=== PATIENT | female | born 1950 | race Caucasian/White ===

== ENCOUNTER 2017-10-18 11:43 | Inpatient (IN) | payer OTHER ==
[~2017-10-18] VITALS: Ht 160 cm; Wt 68.0 kg
[~2017-10-18 11:43] MED LIST: AMLO10TA2; AMLO10TA2 PO; AMLODIPINE; ASPI-496 PO; ASPI-614; BIFI4CAP PO; CHOL2000 PO; DOCU-131; DOCU100T3 PO; DULO20CA45 PO; HYDR25TA6 PO; HYDROCHLORTHIAZIDE; LOSA100T2; LOSA100T6 PO; LOSARTAN; LOVASTATIN; METO25TA91; METO25TA91 PO; OMEP40CA6 PO; POTA10TA31 PO; SIMV10TA3 PO
[2017-10-18 14:22] LABS: MEAN CORPUSCULAR HEMOGLOBIN 29.9 pg (27.0-34.8); MEAN CORPUSCULAR HGB CONC 34.6 g/dL (32.4-35.8); MEAN CORPUSCULAR VOLUME 86.4 fL (80-100); MEAN PLATELET VOLUME 7.2 fL (7.4-10.4); PLATELET COUNT 393 x10^3/uL (130-400); RED BLOOD COUNT 5.04 x10^6/uL (3.82-5.3)
[2017-10-18 14:34] LABS: ALBUMIN 4.1 g/dL (3.4-5.0); ANION GAP 14 mmol/L (5-15); CHLORIDE 75 mmol/L (98-107); CREATININE 0.79 mg/dL (0.55-1.02)
[2017-10-18 14:38] LABS: TROPONIN I 0.022 ng/mL (0.000-0.045)
[2017-10-18 14:58] LABS: BASOPHILS # (AUTO) 0.03 x10^3/uL (0-0.1); BASOPHILS % (AUTO) 0 % (0-1); EOSINOPHILS # (AUTO) 0.04 x10^3/uL (0-0.4); EOSINOPHILS % (AUTO) 0 % (1-7); LYMPHOCYTES # (AUTO) 1.74 x10^3/uL (1-3.4); LYMPHOCYTES % (AUTO) 10 % (22-44); MD SCAN; MONOCYTES # (AUTO) 0.85 x10^3/uL (0.2-0.8); MONOCYTES % (AUTO) 5 % (2-9); NEUTROPHILS % (AUTO) 85 % (42-75)
[2017-10-18] MEDS ORDERED: DULO60CA7 PO (15:51)
[2017-10-18] MEDS ORDERED: ATOR40TA78 PO (15:51)
[2017-10-18] MEDS ORDERED: METF500T5 PO (15:51)
[2017-10-18] MEDS ORDERED: SODIUM CHLORIDE 0.9% 1,000 ML IV SCH (16:00)
[2017-10-18] MEDS ORDERED: BISACODYL 10 MG SUPP PR PRN (17:00)
[2017-10-18] MEDS ORDERED: DOCUSATE 100 MG CAPSULE PO PRN (17:00)
[2017-10-18] MEDS ORDERED: ONDANSETRON 2MG/ML, 2ML IVPush PRN (17:00)
[2017-10-18] MEDS ORDERED: POLYETHYLENE GLYCOL 17 GM PACKET PO PRN (17:00)
[2017-10-18] MEDS ORDERED: ENOXAPARIN 40 MG/0.4 ML SQ SCH (17:00)
[2017-10-18 17:28] LABS: MICROSCOPIC NOT IND
[2017-10-18] MEDS ORDERED: POTASSIUM CHLORIDE 10% 40 MEQ/30 ML UDC PO ONE ×2 (17:30→18:30)
[2017-10-18 17:37] LABS: CULTURE INDICATED? NO
[2017-10-18] MEDS ORDERED: ENOXAPARIN 40 MG/0.4 ML ONE (17:48)
[2017-10-18] MEDS ORDERED: POTASSIUM CHLORIDE 20 MEQ TAB.ER.PRT ONE (17:48)
[2017-10-18] MEDS ORDERED: POTASSIUM CHLORIDE 20 MEQ PACKET ONE (17:56)
[2017-10-18 17:57] LABS: OSMOLALITY,URINE 657 mOsm/kg (500-850)
[2017-10-18 18:12] LABS: ANION GAP 14 mmol/L (5-15); CALCIUM 8.2 mg/dL (8.5-10.1); CHLORIDE 77 mmol/L (98-107); CREATININE 0.68 mg/dL (0.55-1.02)
[2017-10-18] MEDS: SODIUM CHLORIDE 0.9% 1,000 ML IV SCH (19:00)
[2017-10-18 19:19] LABS: THYROID STIMULATING HORMONE 1.79 mIU/L (0.358-3.740)
[2017-10-18] MEDS: FAMOTIDINE 20 MG/2 ML IVPush SCH (20:17)
[2017-10-18] MEDS: ATORVASTATIN 40 MG TABLET PO SCH (20:17)
[2017-10-18 20:33] VITALS: BP 135/67
[2017-10-18] MEDS ORDERED: LORazepam 2 MG/ML, 1ML IVPush ONE (21:30)
[2017-10-18 22:49] LABS: ANION GAP 11 mmol/L (5-15); CHLORIDE 82 mmol/L (98-107)
[2017-10-18] MEDS: hydrALAzine 20 MG/ML, 1ML IVPush PRN (23:08)
[2017-10-19 02:48] LABS: BASOPHILS # (AUTO) 0.01 x10^3/uL (0-0.1); BASOPHILS % (AUTO) 0 % (0-1); EOSINOPHILS # (AUTO) 0.02 x10^3/uL (0-0.4); EOSINOPHILS % (AUTO) 0 % (1-7); LYMPHOCYTES # (AUTO) 1.03 x10^3/uL (1-3.4); LYMPHOCYTES % (AUTO) 6 % (22-44); MD NO; MEAN CORPUSCULAR VOLUME 85.7 fL (80-100); MEAN PLATELET VOLUME 7.4 fL (7.4-10.4); MONOCYTES # (AUTO) 1.08 x10^3/uL (0.2-0.8); MONOCYTES % (AUTO) 7 % (2-9); NEUTROPHILS # (AUTO) 13.93 x10^3/uL (1.8-6.8); NEUTROPHILS % (AUTO) 87 % (42-75); PLATELET COUNT 341 x10^3/uL (130-400); RED BLOOD COUNT 4.43 x10^6/uL (3.82-5.3); RED CELL DISTRIBUTION WIDTH 13.6 % (9.6-15.2)
[2017-10-19 02:58] LABS: ANION GAP 11 mmol/L (5-15); CALCIUM 7.8 mg/dL (8.5-10.1); CHLORIDE 83 mmol/L (98-107); CREATININE 0.58 mg/dL (0.55-1.02)
[2017-10-19] MEDS ORDERED: POTASSIUM CHLORIDE 10% 40 MEQ/30 ML UDC PO ONE ×3 (04:00→15:00)
[2017-10-19] MEDS: SODIUM CHLORIDE 0.9% 1,000 ML IV SCH ×2 (04:02→17:13)
[2017-10-19 04:40] VITALS: BP 119/71
[2017-10-19 06:39] LABS: ALANINE AMINOTRANSFERASE 30 U/L (12-78); ANION GAP 12 mmol/L (5-15); CALCIUM 7.6 mg/dL (8.5-10.1); CHLORIDE 85 mmol/L (98-107); CREATININE 0.73 mg/dL (0.55-1.02)
[2017-10-19 06:41] LABS: ALKALINE PHOSPHATASE 96 U/L (45-117); BILIRUBIN,TOTAL 0.8 mg/dL (0.2-1.0)
[2017-10-19] MEDS ORDERED: MAGNESIUM SULFATE PMX 4GM/100M 100 ML IV ONE (07:30)
[2017-10-19] MEDS ORDERED: POTASSIUM PHOSPHATE 44 MEQ in SODIUM CHLORIDE 0.9% 500 ML IV ONE (07:30)
[2017-10-19] MEDS: ENOXAPARIN 40 MG/0.4 ML SQ SCH (08:43)
[2017-10-19] MEDS: METOPROLOL SUCCINATE 25 MG TAB.ER.24H PO SCH (08:49)
[2017-10-19] MEDS: AMLODIPINE 5 MG TABLET PO SCH (08:50)
[2017-10-19] MEDS: ASPIRIN 81 MG TABLET EC PO SCH (08:52)
[2017-10-19] MEDS: LOSARTAN 50MG TABLET PO SCH (08:53)
[2017-10-19] MEDS: FAMOTIDINE 20 MG/2 ML IVPush SCH ×2 (08:55→20:43)
[2017-10-19] MEDS ORDERED: CHOLECALCIFEROL 1,000 UNIT TABLET PO SCH (09:00)
[2017-10-19] MEDS: INSULIN LISPRO 100 UNITS/ML, PEN SQ-INSULIN SCH ×3 (12:12→20:57)
[2017-10-19 12:24] LABS: ANION GAP 8 mmol/L (5-15); CALCIUM 7.9 mg/dL (8.5-10.1); CHLORIDE 85 mmol/L (98-107); CREATININE 0.57 mg/dL (0.55-1.02)
[2017-10-19] MEDS: ERGOCALCIFEROL 50,000 UNIT CAPSULE PO SCH (16:06)
[2017-10-19 19:03] LABS: ANION GAP 8 mmol/L (5-15); CHLORIDE 89 mmol/L (98-107)
[2017-10-19] MEDS: ATORVASTATIN 40 MG TABLET PO SCH (20:43)
[2017-10-20 00:39] LABS: ANION GAP 7 mmol/L (5-15); CHLORIDE 91 mmol/L (98-107); CREATININE 0.54 mg/dL (0.55-1.02)
[2017-10-20] MEDS: SODIUM CHLORIDE 0.9% 1,000 ML IV SCH ×3 (03:00→16:09)
[2017-10-20 04:00] VITALS: BP 150/56
[2017-10-20 05:49] LABS: BASOPHILS # (AUTO) 0.03 x10^3/uL (0-0.1); BASOPHILS % (AUTO) 0 % (0-1); EOSINOPHILS # (AUTO) 0.03 x10^3/uL (0-0.4); EOSINOPHILS % (AUTO) 0 % (1-7); LYMPHOCYTES # (AUTO) 1.48 x10^3/uL (1-3.4); LYMPHOCYTES % (AUTO) 10 % (22-44); MD NO; MEAN CORPUSCULAR HEMOGLOBIN 29.8 pg (27.0-34.8); MEAN CORPUSCULAR VOLUME 87.7 fL (80-100); MEAN PLATELET VOLUME 7.3 fL (7.4-10.4); MONOCYTES # (AUTO) 0.92 x10^3/uL (0.2-0.8); MONOCYTES % (AUTO) 6 % (2-9); NEUTROPHILS # (AUTO) 12.61 x10^3/uL (1.8-6.8); NEUTROPHILS % (AUTO) 84 % (42-75); PLATELET COUNT 323 x10^3/uL (130-400); RED BLOOD COUNT 4.61 x10^6/uL (3.82-5.3); RED CELL DISTRIBUTION WIDTH 13.9 % (9.6-15.2)
[2017-10-20 06:00] LABS: ANION GAP 8 mmol/L (5-15); CALCIUM 7.8 mg/dL (8.5-10.1); CHLORIDE 91 mmol/L (98-107)
[2017-10-20 06:01] LABS: CREATININE 0.55 mg/dL (0.55-1.02)
[2017-10-20] MEDS: INSULIN LISPRO 100 UNITS/ML, PEN SQ-INSULIN SCH ×4 (07:00→21:48)
[2017-10-20] MEDS ORDERED: POTASSIUM PHOSPHATE 44 MEQ in SODIUM CHLORIDE 0.9% 500 ML IV ONE (07:00)
[2017-10-20] MEDS: ENOXAPARIN 40 MG/0.4 ML SQ SCH (08:52)
[2017-10-20] MEDS: AMLODIPINE 5 MG TABLET PO SCH (09:05)
[2017-10-20] MEDS: FAMOTIDINE 20 MG/2 ML IVPush SCH ×2 (09:05→21:46)
[2017-10-20] MEDS: ASPIRIN 81 MG TABLET EC PO SCH (09:05)
[2017-10-20] MEDS: LOSARTAN 50MG TABLET PO SCH (09:06)
[2017-10-20] MEDS: METOPROLOL SUCCINATE 25 MG TAB.ER.24H PO SCH (09:06)
[2017-10-20] MEDS: DULOXETINE 30 MG CAPSULE.DR PO SCH (10:15)
[2017-10-20 12:43] VITALS: BP 183/78
[2017-10-20] MEDS: hydrALAzine 20 MG/ML, 1ML IVPush PRN (12:47)
[2017-10-20 14:59] VITALS: BP 163/79
[2017-10-20 19:31] VITALS: BP 151/70
[2017-10-20] MEDS: ATORVASTATIN 40 MG TABLET PO SCH (21:47)
[2017-10-21 02:12] VITALS: BP 168/80
[2017-10-21] MEDS: SODIUM CHLORIDE 0.9% 1,000 ML IV SCH (02:20)
[2017-10-21] MEDS: ACETAMINOPHEN 325 MG TABLET PO PRN ×2 (03:57→09:34)
[2017-10-21] MEDS: INSULIN LISPRO 100 UNITS/ML, PEN SQ-INSULIN SCH ×4 (07:00→20:44)
[2017-10-21 07:42] VITALS: BP 189/77
[2017-10-21 07:59] LABS: ANION GAP 9 mmol/L (5-15); CALCIUM 8.1 mg/dL (8.5-10.1); CHLORIDE 101 mmol/L (98-107); CREATININE 0.55 mg/dL (0.55-1.02)
[2017-10-21] MEDS: AMLODIPINE 5 MG TABLET PO SCH (08:00)
[2017-10-21] MEDS: DULOXETINE 30 MG CAPSULE.DR PO SCH (08:00)
[2017-10-21] MEDS: ASPIRIN 81 MG TABLET EC PO SCH (08:00)
[2017-10-21] MEDS: FAMOTIDINE 20 MG/2 ML IVPush SCH (08:00)
[2017-10-21] MEDS: ENOXAPARIN 40 MG/0.4 ML SQ SCH (08:00)
[2017-10-21] MEDS: LOSARTAN 50MG TABLET PO SCH (08:01)
[2017-10-21] MEDS: METOPROLOL SUCCINATE 50 MG TAB.ER.24H PO SCH (08:01)
[2017-10-21 09:05] VITALS: BP 159/82
[2017-10-21 11:22] LABS: BASOPHILS # (AUTO) 0.05 x10^3/uL (0-0.1); BASOPHILS % (AUTO) 0 % (0-1); EOSINOPHILS # (AUTO) 0.03 x10^3/uL (0-0.4); EOSINOPHILS % (AUTO) 0 % (1-7); LYMPHOCYTES # (AUTO) 1.54 x10^3/uL (1-3.4); LYMPHOCYTES % (AUTO) 12 % (22-44); MD NO; MEAN CORPUSCULAR HEMOGLOBIN 29.3 pg (27.0-34.8); MEAN CORPUSCULAR HGB CONC 33.9 g/dL (32.4-35.8); MEAN CORPUSCULAR VOLUME 86.4 fL (80-100); MEAN PLATELET VOLUME 7.8 fL (7.4-10.4); MONOCYTES # (AUTO) 0.88 x10^3/uL (0.2-0.8); MONOCYTES % (AUTO) 7 % (2-9); NEUTROPHILS # (AUTO) 10.25 x10^3/uL (1.8-6.8); NEUTROPHILS % (AUTO) 80 % (42-75); PLATELET COUNT 302 x10^3/uL (130-400); RED BLOOD COUNT 4.52 x10^6/uL (3.82-5.3); RED CELL DISTRIBUTION WIDTH 14.1 % (9.6-15.2)
[2017-10-21] MEDS ORDERED: POTASSIUM CHLORIDE 20 MEQ TAB.ER.PRT PO ONE (11:30)
[2017-10-21 12:22] LABS: HEMOGLOBIN A1C 7.4 % (4.2-6.3)
[2017-10-21 14:24] VITALS: BP 146/67
[2017-10-21 20:04] VITALS: BP 163/67
[2017-10-21] MEDS: ATORVASTATIN 40 MG TABLET PO SCH (20:43)
[2017-10-21] MEDS: FAMOTIDINE 20 MG TABLET PO SCH (20:44)
[2017-10-22 02:22] VITALS: BP 148/71
[2017-10-22 05:37] LABS: CHLORIDE 98 mmol/L (98-107)
[2017-10-22 05:46] LABS: ALANINE AMINOTRANSFERASE 41 U/L (12-78); ALBUMIN 3.4 g/dL (3.4-5.0); ALKALINE PHOSPHATASE 93 U/L (45-117); ANION GAP 8 mmol/L (5-15); BILIRUBIN,TOTAL 0.8 mg/dL (0.2-1.0); CALCIUM 8.5 mg/dL (8.5-10.1); CREATININE 0.55 mg/dL (0.55-1.02); TOTAL PROTEIN 6.3 g/dL (6.4-8.2)
[2017-10-22 06:12] LABS: BASOPHILS # (AUTO) 0.06 x10^3/uL (0-0.1); BASOPHILS % (AUTO) 0 % (0-1); EOSINOPHILS # (AUTO) 0.07 x10^3/uL (0-0.4); EOSINOPHILS % (AUTO) 0 % (1-7); LYMPHOCYTES # (AUTO) 1.89 x10^3/uL (1-3.4); LYMPHOCYTES % (AUTO) 13 % (22-44); MD NO; MEAN CORPUSCULAR HEMOGLOBIN 29.5 pg (27.0-34.8); MEAN CORPUSCULAR HGB CONC 33.8 g/dL (32.4-35.8); MEAN CORPUSCULAR VOLUME 87.4 fL (80-100); MEAN PLATELET VOLUME 7.8 fL (7.4-10.4); MONOCYTES # (AUTO) 0.86 x10^3/uL (0.2-0.8); MONOCYTES % (AUTO) 6 % (2-9); NEUTROPHILS # (AUTO) 12.29 x10^3/uL (1.8-6.8); NEUTROPHILS % (AUTO) 81 % (42-75); PLATELET COUNT 311 x10^3/uL (130-400); RED BLOOD COUNT 4.32 x10^6/uL (3.82-5.3); RED CELL DISTRIBUTION WIDTH 14.1 % (9.6-15.2)
[2017-10-22] MEDS: INSULIN LISPRO 100 UNITS/ML, PEN SQ-INSULIN SCH ×4 (07:00→20:37)
[2017-10-22 08:01] VITALS: BP 167/77
[2017-10-22] MEDS: ENOXAPARIN 40 MG/0.4 ML SQ SCH (08:02)
[2017-10-22] MEDS: ASPIRIN 81 MG TABLET EC PO SCH (08:03)
[2017-10-22] MEDS: DULOXETINE 30 MG CAPSULE.DR PO SCH (08:03)
[2017-10-22] MEDS: FAMOTIDINE 20 MG TABLET PO SCH ×2 (08:03→20:37)
[2017-10-22] MEDS: METOPROLOL SUCCINATE 50 MG TAB.ER.24H PO SCH (08:03)
[2017-10-22] MEDS: AMLODIPINE 5 MG TABLET PO SCH (08:03)
[2017-10-22] MEDS: LOSARTAN 50MG TABLET PO SCH (08:04)
[2017-10-22] MEDS: SODIUM CHLORIDE 0.9% 1,000 ML IV SCH ×2 (10:34→20:37)
[2017-10-22] MEDS ORDERED: HALOPERIDOL 5 MG/ML ONE (15:49)
[2017-10-22] MEDS: HALOPERIDOL 5 MG/ML IM PRN (15:51)
[2017-10-22 16:32] VITALS: BP 151/75
[2017-10-22] MEDS: metFORMIN 500 MG TABLET PO SCH (16:34)
[2017-10-22 19:23] VITALS: BP_SYST 128; BP_SYST 156; BP_DIAS 63; BP_DIAS 77
[2017-10-22] MEDS: ATORVASTATIN 40 MG TABLET PO SCH (20:36)
[2017-10-23] MEDS: SODIUM CHLORIDE 0.9% 1,000 ML IV SCH ×2 (01:36→11:22)
[2017-10-23 02:10] VITALS: BP 168/84
[2017-10-23 05:20] LABS: BASOPHILS # (AUTO) 0.04 x10^3/uL (0-0.1); BASOPHILS % (AUTO) 0 % (0-1); EOSINOPHILS # (AUTO) 0.09 x10^3/uL (0-0.4); EOSINOPHILS % (AUTO) 1 % (1-7); LYMPHOCYTES # (AUTO) 1.69 x10^3/uL (1-3.4); LYMPHOCYTES % (AUTO) 15 % (22-44); MD NO; MEAN CORPUSCULAR HEMOGLOBIN 30.2 pg (27.0-34.8); MEAN CORPUSCULAR HGB CONC 34.2 g/dL (32.4-35.8); MEAN CORPUSCULAR VOLUME 88.2 fL (80-100); MEAN PLATELET VOLUME 7.3 fL (7.4-10.4); MONOCYTES # (AUTO) 0.69 x10^3/uL (0.2-0.8); MONOCYTES % (AUTO) 6 % (2-9); NEUTROPHILS # (AUTO) 8.52 x10^3/uL (1.8-6.8); NEUTROPHILS % (AUTO) 77 % (42-75); PLATELET COUNT 286 x10^3/uL (130-400); RED BLOOD COUNT 4.25 x10^6/uL (3.82-5.3); RED CELL DISTRIBUTION WIDTH 14.1 % (9.6-15.2)
[2017-10-23 05:21] LABS: ANION GAP 8 mmol/L (5-15); CHLORIDE 99 mmol/L (98-107)
[2017-10-23 05:22] LABS: CREATININE 0.76 mg/dL (0.55-1.02)
[2017-10-23 06:45] VITALS: BP 204/83
[2017-10-23] MEDS: INSULIN LISPRO 100 UNITS/ML, PEN SQ-INSULIN SCH ×4 (07:34→21:00)
[2017-10-23] MEDS ORDERED: METOPROLOL SUCCINATE 25 MG TAB.ER.24H ONE (08:00)
[2017-10-23] MEDS: AMLODIPINE 5 MG TABLET PO SCH (08:05)
[2017-10-23] MEDS: ENOXAPARIN 40 MG/0.4 ML SQ SCH (08:05)
[2017-10-23] MEDS: metFORMIN 500 MG TABLET PO SCH ×2 (08:05→16:25)
[2017-10-23] MEDS: DULOXETINE 30 MG CAPSULE.DR PO SCH (08:06)
[2017-10-23] MEDS: FAMOTIDINE 20 MG TABLET PO SCH ×2 (08:06→21:05)
[2017-10-23] MEDS: LOSARTAN 50MG TABLET PO SCH (08:06)
[2017-10-23] MEDS: ASPIRIN 81 MG TABLET EC PO SCH (08:06)
[2017-10-23] MEDS: METOPROLOL SUCCINATE 50 MG TAB.ER.24H PO SCH (09:16)
[2017-10-23] MEDS: DIVALPROEX 250 MG TABLET.DR PO SCH (11:22)
[2017-10-23 13:41] VITALS: BP 127/72
[2017-10-23 18:36] VITALS: BP 154/69
[2017-10-23] MEDS ORDERED: LORazepam 0.5MG TABLET PO ONE (21:00)
[2017-10-23] MEDS: ATORVASTATIN 40 MG TABLET PO SCH (21:05)
[2017-10-24 00:51] VITALS: BP 145/67
[2017-10-24 05:16] LABS: BASOPHILS # (AUTO) 0.07 x10^3/uL (0-0.1); BASOPHILS % (AUTO) 1 % (0-1); EOSINOPHILS # (AUTO) 0.08 x10^3/uL (0-0.4); EOSINOPHILS % (AUTO) 1 % (1-7); LYMPHOCYTES # (AUTO) 2.11 x10^3/uL (1-3.4); LYMPHOCYTES % (AUTO) 18 % (22-44); MD NO; MEAN CORPUSCULAR HEMOGLOBIN 29.8 pg (27.0-34.8); MEAN CORPUSCULAR HGB CONC 33.9 g/dL (32.4-35.8); MEAN CORPUSCULAR VOLUME 87.8 fL (80-100); MEAN PLATELET VOLUME 7.2 fL (7.4-10.4); MONOCYTES # (AUTO) 0.75 x10^3/uL (0.2-0.8); MONOCYTES % (AUTO) 6 % (2-9); NEUTROPHILS % (AUTO) 75 % (42-75); PLATELET COUNT 303 x10^3/uL (130-400); RED BLOOD COUNT 4.58 x10^6/uL (3.82-5.3)
[2017-10-24 05:29] LABS: ANION GAP 10 mmol/L (5-15); CALCIUM 8.5 mg/dL (8.5-10.1); CHLORIDE 102 mmol/L (98-107)
[2017-10-24 05:31] LABS: CREATININE 0.71 mg/dL (0.55-1.02)
[2017-10-24] MEDS: INSULIN LISPRO 100 UNITS/ML, PEN SQ-INSULIN SCH ×4 (07:00→21:35)
[2017-10-24 07:30] VITALS: BP 192/79
[2017-10-24] MEDS: DIVALPROEX 250 MG TABLET.DR PO SCH ×2 (07:51→07:53)
[2017-10-24] MEDS: metFORMIN 500 MG TABLET PO SCH ×2 (07:51→17:00)
[2017-10-24] MEDS: QUETIAPINE 25MG TABLET PO SCH ×2 (07:51→21:36)
[2017-10-24] MEDS: AMLODIPINE 5 MG TABLET PO SCH (07:51)
[2017-10-24] MEDS: ASPIRIN 81 MG TABLET EC PO SCH (07:52)
[2017-10-24] MEDS: DULOXETINE 30 MG CAPSULE.DR PO SCH (07:52)
[2017-10-24] MEDS: FAMOTIDINE 20 MG TABLET PO SCH ×2 (07:52→21:36)
[2017-10-24] MEDS: METOPROLOL SUCCINATE 50 MG TAB.ER.24H PO SCH (07:52)
[2017-10-24] MEDS: LOSARTAN 50MG TABLET PO SCH (07:52)
[2017-10-24] MEDS: ENOXAPARIN 40 MG/0.4 ML SQ SCH (07:53)
[2017-10-24] MEDS: HALOPERIDOL 5 MG/ML IM PRN (13:48)
[2017-10-24 14:00] VITALS: BP 120/69
[2017-10-24 18:46] VITALS: BP 148/73
[2017-10-24] MEDS: ACETAMINOPHEN 325 MG TABLET PO PRN (21:36)
[2017-10-24] MEDS: ATORVASTATIN 40 MG TABLET PO SCH (21:36)
[2017-10-25 02:00] VITALS: BP 95/58
[2017-10-25 05:41] LABS: BASOPHILS # (AUTO) 0.08 x10^3/uL (0-0.1); BASOPHILS % (AUTO) 1 % (0-1); EOSINOPHILS # (AUTO) 0.12 x10^3/uL (0-0.4); EOSINOPHILS % (AUTO) 1 % (1-7); LYMPHOCYTES # (AUTO) 2.19 x10^3/uL (1-3.4); LYMPHOCYTES % (AUTO) 25 % (22-44); MD NO; MEAN CORPUSCULAR HEMOGLOBIN 29.5 pg (27.0-34.8); MEAN CORPUSCULAR HGB CONC 33.9 g/dL (32.4-35.8); MEAN PLATELET VOLUME 7.3 fL (7.4-10.4); MONOCYTES # (AUTO) 0.73 x10^3/uL (0.2-0.8); MONOCYTES % (AUTO) 8 % (2-9); NEUTROPHILS # (AUTO) 5.53 x10^3/uL (1.8-6.8); NEUTROPHILS % (AUTO) 64 % (42-75); PLATELET COUNT 281 x10^3/uL (130-400); RED BLOOD COUNT 4.32 x10^6/uL (3.82-5.3); RED CELL DISTRIBUTION WIDTH 14.1 % (9.6-15.2)
[2017-10-25 05:48] LABS: ANION GAP 9 mmol/L (5-15); CALCIUM 8.7 mg/dL (8.5-10.1); CHLORIDE 105 mmol/L (98-107)
[2017-10-25 05:49] LABS: CREATININE 0.78 mg/dL (0.55-1.02)
[2017-10-25] MEDS: INSULIN LISPRO 100 UNITS/ML, PEN SQ-INSULIN SCH ×4 (07:00→21:16)
[2017-10-25 08:49] VITALS: BP 160/77
[2017-10-25] MEDS: ENOXAPARIN 40 MG/0.4 ML SQ SCH (11:56)
[2017-10-25] MEDS: LOSARTAN 50MG TABLET PO SCH (11:57)
[2017-10-25] MEDS: FAMOTIDINE 20 MG TABLET PO SCH ×2 (11:57→21:07)
[2017-10-25] MEDS: DIVALPROEX 250 MG TABLET.DR PO SCH (11:57)
[2017-10-25] MEDS: POTASSIUM CHLORIDE 20 MEQ PACKET PO SCH ×3 (11:57→17:00)
[2017-10-25] MEDS: DULOXETINE 30 MG CAPSULE.DR PO SCH (11:57)
[2017-10-25] MEDS: metFORMIN 500 MG TABLET PO SCH ×2 (11:58→17:00)
[2017-10-25] MEDS: AMLODIPINE 5 MG TABLET PO SCH (11:58)
[2017-10-25] MEDS: METOPROLOL SUCCINATE 50 MG TAB.ER.24H PO SCH (11:58)
[2017-10-25] MEDS: QUETIAPINE 25MG TABLET PO SCH ×2 (11:59→21:06)
[2017-10-25] MEDS: ASPIRIN 81 MG TABLET EC PO SCH (11:59)
[2017-10-25] MEDS: SODIUM CHLORIDE 0.9% 1,000 ML IV SCH (12:00)
[2017-10-25 13:35] VITALS: BP 127/76
[2017-10-25 18:37] VITALS: BP 147/67
[2017-10-25] MEDS: ATORVASTATIN 40 MG TABLET PO SCH (21:07)
[2017-10-26 02:38] VITALS: BP 142/70
[2017-10-26 05:36] LABS: ALBUMIN 3.1 g/dL (3.4-5.0); ANION GAP 9 mmol/L (5-15); CALCIUM 8.5 mg/dL (8.5-10.1); CHLORIDE 106 mmol/L (98-107); CREATININE 0.81 mg/dL (0.55-1.02)
[2017-10-26] MEDS: SODIUM CHLORIDE 0.9% 1,000 ML IV SCH (05:43)
[2017-10-26 06:51] VITALS: BP 148/69
[2017-10-26] MEDS: INSULIN LISPRO 100 UNITS/ML, PEN SQ-INSULIN SCH ×4 (07:00→20:50)
[2017-10-26] MEDS: FAMOTIDINE 20 MG TABLET PO SCH ×2 (09:00→20:45)
[2017-10-26] MEDS: POTASSIUM CHLORIDE 20 MEQ PACKET PO SCH ×3 (11:46→17:00)
[2017-10-26] MEDS: ENOXAPARIN 40 MG/0.4 ML SQ SCH (11:46)
[2017-10-26] MEDS: LOSARTAN 50MG TABLET PO SCH (11:47)
[2017-10-26] MEDS: DULOXETINE 30 MG CAPSULE.DR PO SCH (11:47)
[2017-10-26] MEDS: QUETIAPINE 25MG TABLET PO SCH ×2 (11:47→20:45)
[2017-10-26] MEDS: DIVALPROEX 250 MG TABLET.DR PO SCH (11:47)
[2017-10-26] MEDS: metFORMIN 500 MG TABLET PO SCH ×2 (11:48→17:00)
[2017-10-26] MEDS: METOPROLOL SUCCINATE 50 MG TAB.ER.24H PO SCH (11:48)
[2017-10-26] MEDS: ASPIRIN 81 MG TABLET EC PO SCH (11:48)
[2017-10-26] MEDS: AMLODIPINE 5 MG TABLET PO SCH (11:49)
[2017-10-26 12:27] VITALS: BP 148/75
[2017-10-26] MEDS: ERGOCALCIFEROL 50,000 UNIT CAPSULE PO SCH (15:00)
[2017-10-26 18:58] VITALS: BP 128/70
[2017-10-26 19:06] VITALS: BP 118/80
[2017-10-26] MEDS: ATORVASTATIN 40 MG TABLET PO SCH (20:45)
[2017-10-26] MEDS: HALOPERIDOL 5 MG/ML IM PRN (22:16)
[2017-10-27 00:33] VITALS: BP 133/64
[2017-10-27 05:46] LABS: CHLORIDE 105 mmol/L (98-107)
[2017-10-27 05:58] LABS: ANION GAP 9 mmol/L (5-15); CALCIUM 8.4 mg/dL (8.5-10.1); CREATININE 0.69 mg/dL (0.55-1.02)
[2017-10-27] MEDS: INSULIN LISPRO 100 UNITS/ML, PEN SQ-INSULIN SCH ×4 (07:00→20:15)
[2017-10-27] MEDS: POTASSIUM CHLORIDE 20 MEQ PACKET PO SCH ×4 (08:00→17:06)
[2017-10-27] MEDS: ENOXAPARIN 40 MG/0.4 ML SQ SCH (08:09)
[2017-10-27 09:13] VITALS: BP 155/77
[2017-10-27] MEDS: ASPIRIN 81 MG TABLET EC PO SCH (09:37)
[2017-10-27] MEDS: metFORMIN 500 MG TABLET PO SCH ×2 (09:38→17:05)
[2017-10-27] MEDS: DULOXETINE 30 MG CAPSULE.DR PO SCH (09:38)
[2017-10-27] MEDS: QUETIAPINE 25MG TABLET PO SCH ×2 (09:45→20:14)
[2017-10-27] MEDS: DIVALPROEX 250 MG TABLET.DR PO SCH (09:45)
[2017-10-27] MEDS: LOSARTAN 50MG TABLET PO SCH (09:57)
[2017-10-27] MEDS: FAMOTIDINE 20 MG TABLET PO SCH ×2 (09:59→20:14)
[2017-10-27] MEDS: METOPROLOL SUCCINATE 50 MG TAB.ER.24H PO SCH (09:59)
[2017-10-27] MEDS: AMLODIPINE 5 MG TABLET PO SCH (10:00)
[2017-10-27] MEDS: POTASSIUM CHLORIDE 10 MEQ TABLET.ER PO SCH (10:00)
[2017-10-27 12:30] VITALS: BP 131/70
[2017-10-27 17:38] LABS: MICROSCOPIC AUTO
[2017-10-27 17:41] LABS: CULTURE INDICATED? YES
[2017-10-27] MEDS: CEFTRIAXONE PMX 2GM/50ML 50 ML IV SCH (18:44)
[2017-10-27 19:10] VITALS: BP 120/71
[2017-10-27] MEDS: ATORVASTATIN 40 MG TABLET PO SCH (20:15)
[2017-10-28 01:06] VITALS: BP 144/70
[2017-10-28 05:08] LABS: ANION GAP 10 mmol/L (5-15); CALCIUM 8.8 mg/dL (8.5-10.1); CHLORIDE 106 mmol/L (98-107); CREATININE 0.73 mg/dL (0.55-1.02)
[2017-10-28 06:36] VITALS: BP 143/73
[2017-10-28] MEDS: POTASSIUM CHLORIDE 20 MEQ PACKET PO SCH ×3 (08:00→16:46)
[2017-10-28] MEDS: INSULIN LISPRO 100 UNITS/ML, PEN SQ-INSULIN SCH ×4 (08:43→19:44)
[2017-10-28] MEDS: ENOXAPARIN 40 MG/0.4 ML SQ SCH (08:46)
[2017-10-28] MEDS: metFORMIN 500 MG TABLET PO SCH ×2 (08:46→16:45)
[2017-10-28] MEDS: ASPIRIN 81 MG TABLET EC PO SCH (08:47)
[2017-10-28] MEDS: AMLODIPINE 5 MG TABLET PO SCH (08:47)
[2017-10-28] MEDS: QUETIAPINE 25MG TABLET PO SCH ×2 (08:47→19:41)
[2017-10-28] MEDS: POTASSIUM CHLORIDE 10 MEQ TABLET.ER PO SCH (08:47)
[2017-10-28] MEDS: FAMOTIDINE 20 MG TABLET PO SCH ×2 (08:47→19:44)
[2017-10-28] MEDS: METOPROLOL SUCCINATE 50 MG TAB.ER.24H PO SCH (08:47)
[2017-10-28] MEDS: DIVALPROEX 250 MG TABLET.DR PO SCH (08:48)
[2017-10-28] MEDS: LOSARTAN 50MG TABLET PO SCH (08:48)
[2017-10-28] MEDS: DULOXETINE 30 MG CAPSULE.DR PO SCH (08:48)
[2017-10-28] MEDS: HALOPERIDOL 5 MG/ML IM PRN ×2 (13:58→22:36)
[2017-10-28 14:52] VITALS: BP 136/74
[2017-10-28] MEDS: CEFTRIAXONE PMX 2GM/50ML 50 ML IV SCH (17:36)
[2017-10-28 19:06] VITALS: BP 143/75
[2017-10-28] MEDS: ATORVASTATIN 40 MG TABLET PO SCH (19:44)
[2017-10-29 01:18] VITALS: BP 133/65
[2017-10-29] MEDS: INSULIN LISPRO 100 UNITS/ML, PEN SQ-INSULIN SCH ×4 (07:00→20:24)
[2017-10-29 07:12] VITALS: BP 161/80
[2017-10-29] MEDS: POTASSIUM CHLORIDE 10 MEQ TABLET.ER PO SCH (09:00)
[2017-10-29] MEDS: ENOXAPARIN 40 MG/0.4 ML SQ SCH (09:19)
[2017-10-29] MEDS: METOPROLOL SUCCINATE 50 MG TAB.ER.24H PO SCH (09:19)
[2017-10-29] MEDS: AMLODIPINE 5 MG TABLET PO SCH (09:20)
[2017-10-29] MEDS: DULOXETINE 30 MG CAPSULE.DR PO SCH (09:20)
[2017-10-29] MEDS: POTASSIUM CHLORIDE 20 MEQ PACKET PO SCH ×3 (09:21→17:51)
[2017-10-29] MEDS: QUETIAPINE 25MG TABLET PO SCH ×2 (09:21→20:17)
[2017-10-29] MEDS: LOSARTAN 50MG TABLET PO SCH (09:21)
[2017-10-29] MEDS: ASPIRIN 81 MG TABLET EC PO SCH (09:22)
[2017-10-29] MEDS: metFORMIN 500 MG TABLET PO SCH ×2 (09:22→17:51)
[2017-10-29] MEDS: FAMOTIDINE 20 MG TABLET PO SCH ×2 (09:22→20:16)
[2017-10-29] MEDS: DIVALPROEX 250 MG TABLET.DR PO SCH (10:51)
[2017-10-29 15:54] VITALS: BP 127/68
[2017-10-29 19:00] VITALS: BP 144/79
[2017-10-29] MEDS: CEFTRIAXONE PMX 2GM/50ML 50 ML IV SCH (19:38)
[2017-10-29] MEDS: MELATONIN 3 MG TABLET PO SCH (20:16)
[2017-10-29] MEDS: ATORVASTATIN 40 MG TABLET PO SCH (20:16)
[2017-10-30 01:21] VITALS: BP 128/74
[2017-10-30 06:54] VITALS: BP 151/76
[2017-10-30] MEDS: LOSARTAN 50MG TABLET PO SCH (08:37)
[2017-10-30] MEDS: metFORMIN 500 MG TABLET PO SCH ×2 (08:38→17:04)
[2017-10-30] MEDS: AMLODIPINE 5 MG TABLET PO SCH (08:38)
[2017-10-30] MEDS: METOPROLOL SUCCINATE 50 MG TAB.ER.24H PO SCH (08:39)
[2017-10-30] MEDS: FAMOTIDINE 20 MG TABLET PO SCH ×2 (08:39→20:48)
[2017-10-30] MEDS: QUETIAPINE 25MG TABLET PO SCH ×2 (08:39→20:48)
[2017-10-30] MEDS: INSULIN LISPRO 100 UNITS/ML, PEN SQ-INSULIN SCH ×4 (08:39→20:49)
[2017-10-30] MEDS: ASPIRIN 81 MG TABLET EC PO SCH (08:39)
[2017-10-30] MEDS: POTASSIUM CHLORIDE 20 MEQ PACKET PO SCH ×3 (08:40→17:04)
[2017-10-30] MEDS: POTASSIUM CHLORIDE 10 MEQ TABLET.ER PO SCH (08:40)
[2017-10-30] MEDS: ENOXAPARIN 40 MG/0.4 ML SQ SCH (08:40)
[2017-10-30] MEDS: DULOXETINE 30 MG CAPSULE.DR PO SCH (08:40)
[2017-10-30 12:35] VITALS: BP 139/69
[2017-10-30] MEDS: DIVALPROEX 125 MG CAP.SPRINK PO SCH (12:37)
[2017-10-30] MEDS: CEFTRIAXONE PMX 2GM/50ML 50 ML IV SCH (18:10)
[2017-10-30 18:38] VITALS: BP 156/76
[2017-10-30] MEDS: DONEPEZIL 5 MG TABLET PO SCH (20:48)
[2017-10-30] MEDS: ATORVASTATIN 40 MG TABLET PO SCH (20:48)
[2017-10-30] MEDS: MELATONIN 3 MG TABLET PO SCH (20:49)
[2017-10-31 01:58] VITALS: BP 121/76
[2017-10-31 05:42] LABS: BASOPHILS # (AUTO) 0.04 x10^3/uL (0-0.1); BASOPHILS % (AUTO) 1 % (0-1); EOSINOPHILS # (AUTO) 0.11 x10^3/uL (0-0.4); EOSINOPHILS % (AUTO) 2 % (1-7); LYMPHOCYTES # (AUTO) 1.34 x10^3/uL (1-3.4); LYMPHOCYTES % (AUTO) 19 % (22-44); MD NO; MEAN CORPUSCULAR HGB CONC 33.8 g/dL (32.4-35.8); MEAN CORPUSCULAR VOLUME 88.6 fL (80-100); MEAN PLATELET VOLUME 7.2 fL (7.4-10.4); MONOCYTES # (AUTO) 0.43 x10^3/uL (0.2-0.8); MONOCYTES % (AUTO) 6 % (2-9); NEUTROPHILS # (AUTO) 5.19 x10^3/uL (1.8-6.8); NEUTROPHILS % (AUTO) 73 % (42-75); PLATELET COUNT 297 x10^3/uL (130-400); RED BLOOD COUNT 4.14 x10^6/uL (3.82-5.3); RED CELL DISTRIBUTION WIDTH 14.5 % (9.6-15.2)
[2017-10-31 05:54] LABS: CHLORIDE 106 mmol/L (98-107)
[2017-10-31 06:27] LABS: ALBUMIN 3.2 g/dL (3.4-5.0); ANION GAP 11 mmol/L (5-15); CALCIUM 8.9 mg/dL (8.5-10.1); CREATININE 0.61 mg/dL (0.55-1.02)
[2017-10-31] MEDS: INSULIN LISPRO 100 UNITS/ML, PEN SQ-INSULIN SCH ×4 (07:00→21:00)
[2017-10-31 07:03] VITALS: BP 155/74
[2017-10-31] MEDS: metFORMIN 500 MG TABLET PO SCH ×2 (09:08→17:55)
[2017-10-31] MEDS: LOSARTAN 50MG TABLET PO SCH (09:09)
[2017-10-31] MEDS: FAMOTIDINE 20 MG TABLET PO SCH ×2 (09:09→20:52)
[2017-10-31] MEDS: QUETIAPINE 25MG TABLET PO SCH ×2 (09:10→20:54)
[2017-10-31] MEDS: METOPROLOL SUCCINATE 50 MG TAB.ER.24H PO SCH (09:10)
[2017-10-31] MEDS: DULOXETINE 30 MG CAPSULE.DR PO SCH (09:10)
[2017-10-31] MEDS: ASPIRIN 81 MG TABLET EC PO SCH (09:11)
[2017-10-31] MEDS: POTASSIUM CHLORIDE 10 MEQ TABLET.ER PO SCH (09:12)
[2017-10-31] MEDS: ENOXAPARIN 40 MG/0.4 ML SQ SCH (09:12)
[2017-10-31] MEDS: AMLODIPINE 5 MG TABLET PO SCH (09:13)
[2017-10-31] MEDS ORDERED: METO-93 PO (11:02)
[2017-10-31] MEDS ORDERED: DULO30CA2 PO (11:02)
[2017-10-31] MEDS ORDERED: DIVA125C PO (11:02)
[2017-10-31] MEDS ORDERED: METF500T PO (11:02)
[2017-10-31] MEDS ORDERED: SULF1TAB23 PO (11:02)
[2017-10-31] MEDS ORDERED: QUET25TA PO (11:02)
[2017-10-31] MEDS ORDERED: DONE5TAB52 PO (11:02)
[2017-10-31] MEDS ORDERED: HYDR-3343 PO (11:02)
[2017-10-31 13:54] VITALS: BP 116/72
[2017-10-31] MEDS: DIVALPROEX 125 MG CAP.SPRINK PO SCH (14:59)
[2017-10-31] MEDS: CEFTRIAXONE PMX 2GM/50ML 50 ML IV SCH (17:55)
[2017-10-31 18:42] VITALS: BP 124/71
[2017-10-31] MEDS: MELATONIN 3 MG TABLET PO SCH (20:53)
[2017-10-31] MEDS: DONEPEZIL 5 MG TABLET PO SCH (20:54)
[2017-10-31] MEDS: ATORVASTATIN 40 MG TABLET PO SCH (20:54)
[2017-11-01 00:52] VITALS: BP 144/72
[2017-11-01] MEDS: INSULIN LISPRO 100 UNITS/ML, PEN SQ-INSULIN SCH ×4 (07:00→21:00)
[2017-11-01 07:29] VITALS: BP 151/70
[2017-11-01] MEDS: HALOPERIDOL 5 MG/ML IM PRN (08:26)
[2017-11-01] MEDS: ENOXAPARIN 40 MG/0.4 ML SQ SCH (11:38)
[2017-11-01] MEDS: QUETIAPINE 25MG TABLET PO SCH ×2 (11:39→22:23)
[2017-11-01] MEDS: LOSARTAN 50MG TABLET PO SCH (11:40)
[2017-11-01] MEDS: AMLODIPINE 5 MG TABLET PO SCH (11:40)
[2017-11-01] MEDS: METOPROLOL SUCCINATE 50 MG TAB.ER.24H PO SCH (11:40)
[2017-11-01] MEDS: ASPIRIN 81 MG TABLET EC PO SCH (11:41)
[2017-11-01] MEDS: POTASSIUM CHLORIDE 10 MEQ TABLET.ER PO SCH (11:41)
[2017-11-01] MEDS: DULOXETINE 30 MG CAPSULE.DR PO SCH (11:41)
[2017-11-01] MEDS: FAMOTIDINE 20 MG TABLET PO SCH ×2 (11:41→22:23)
[2017-11-01] MEDS: metFORMIN 500 MG TABLET PO SCH ×2 (11:41→18:33)
[2017-11-01] MEDS: DIVALPROEX 125 MG CAP.SPRINK PO SCH (13:28)
[2017-11-01] MEDS: CEFTRIAXONE PMX 2GM/50ML 50 ML IV SCH (18:33)
[2017-11-01 19:44] VITALS: BP 168/83
[2017-11-01] MEDS: MELATONIN 3 MG TABLET PO SCH (21:00)
[2017-11-01] MEDS: ATORVASTATIN 40 MG TABLET PO SCH (22:23)
[2017-11-01] MEDS: DONEPEZIL 5 MG TABLET PO SCH (22:23)
[2017-11-02 03:30] VITALS: BP 100/66
[2017-11-02 06:19] VITALS: BP 116/69
[2017-11-02] MEDS: INSULIN LISPRO 100 UNITS/ML, PEN SQ-INSULIN SCH ×4 (07:00→21:00)
[2017-11-02] MEDS: AMLODIPINE 5 MG TABLET PO SCH (10:03)
[2017-11-02] MEDS: ENOXAPARIN 40 MG/0.4 ML SQ SCH (10:03)
[2017-11-02] MEDS: LOSARTAN 50MG TABLET PO SCH (10:04)
[2017-11-02] MEDS: METOPROLOL SUCCINATE 50 MG TAB.ER.24H PO SCH (10:04)
[2017-11-02] MEDS: FAMOTIDINE 20 MG TABLET PO SCH ×2 (10:04→20:57)
[2017-11-02] MEDS: POTASSIUM CHLORIDE 10 MEQ TABLET.ER PO SCH (10:04)
[2017-11-02] MEDS: metFORMIN 500 MG TABLET PO SCH ×2 (10:04→17:16)
[2017-11-02] MEDS: QUETIAPINE 25MG TABLET PO SCH ×2 (10:04→20:57)
[2017-11-02] MEDS: DULOXETINE 30 MG CAPSULE.DR PO SCH (10:05)
[2017-11-02] MEDS: ASPIRIN 81 MG TABLET EC PO SCH (10:05)
[2017-11-02] MEDS: DIVALPROEX 125 MG CAP.SPRINK PO SCH (12:44)
[2017-11-02 14:24] VITALS: BP 120/73
[2017-11-02] MEDS: ERGOCALCIFEROL 50,000 UNIT CAPSULE PO SCH (17:16)
[2017-11-02] MEDS: CEFTRIAXONE PMX 2GM/50ML 50 ML IV SCH (18:13)
[2017-11-02 20:00] VITALS: BP 154/70
[2017-11-02] MEDS: MELATONIN 3 MG TABLET PO SCH (20:57)
[2017-11-02] MEDS: DONEPEZIL 5 MG TABLET PO SCH (20:57)
[2017-11-02] MEDS: ATORVASTATIN 40 MG TABLET PO SCH (20:57)
[2017-11-03 02:35] VITALS: BP 110/72
[2017-11-03] MEDS: INSULIN LISPRO 100 UNITS/ML, PEN SQ-INSULIN SCH ×4 (07:00→20:08)
[2017-11-03] MEDS: ENOXAPARIN 40 MG/0.4 ML SQ SCH (09:27)
[2017-11-03] MEDS: FAMOTIDINE 20 MG TABLET PO SCH ×3 (09:27→20:14)
[2017-11-03] MEDS: POTASSIUM CHLORIDE 10 MEQ TABLET.ER PO SCH (09:27)
[2017-11-03] MEDS: metFORMIN 500 MG TABLET PO SCH ×2 (09:27→17:35)
[2017-11-03] MEDS: LOSARTAN 50MG TABLET PO SCH (09:28)
[2017-11-03] MEDS: METOPROLOL SUCCINATE 50 MG TAB.ER.24H PO SCH (09:28)
[2017-11-03] MEDS: ASPIRIN 81 MG TABLET EC PO SCH (09:28)
[2017-11-03] MEDS: AMLODIPINE 5 MG TABLET PO SCH (09:28)
[2017-11-03] MEDS: QUETIAPINE 25MG TABLET PO SCH ×3 (09:29→20:14)
[2017-11-03] MEDS: DULOXETINE 30 MG CAPSULE.DR PO SCH (09:29)
[2017-11-03] MEDS: DIVALPROEX 125 MG CAP.SPRINK PO SCH (12:59)
[2017-11-03 13:18] VITALS: BP 98/60
[2017-11-03] MEDS: CEFTRIAXONE PMX 2GM/50ML 50 ML IV SCH (18:39)
[2017-11-03] MEDS: HALOPERIDOL 5 MG/ML IM PRN (19:01)
[2017-11-03 19:48] VITALS: BP 125/63
[2017-11-03] MEDS: ATORVASTATIN 40 MG TABLET PO SCH ×2 (20:07→20:13)
[2017-11-03] MEDS: DONEPEZIL 5 MG TABLET PO SCH ×2 (20:07→20:13)
[2017-11-03] MEDS: MELATONIN 3 MG TABLET PO SCH ×2 (20:08→20:14)
[2017-11-04 01:18] VITALS: BP 155/68
[2017-11-04] MEDS: HALOPERIDOL 5 MG/ML IM PRN (02:24)
[2017-11-04 07:07] VITALS: BP 144/75
[2017-11-04] MEDS: INSULIN LISPRO 100 UNITS/ML, PEN SQ-INSULIN SCH ×4 (08:17→19:48)
[2017-11-04] MEDS: ENOXAPARIN 40 MG/0.4 ML SQ SCH (08:17)
[2017-11-04] MEDS: DULOXETINE 30 MG CAPSULE.DR PO SCH (08:18)
[2017-11-04] MEDS: POTASSIUM CHLORIDE 10 MEQ TABLET.ER PO SCH (08:18)
[2017-11-04] MEDS: FAMOTIDINE 20 MG TABLET PO SCH ×2 (08:18→19:46)
[2017-11-04] MEDS: ASPIRIN 81 MG TABLET EC PO SCH (08:18)
[2017-11-04] MEDS: METOPROLOL SUCCINATE 50 MG TAB.ER.24H PO SCH (08:18)
[2017-11-04] MEDS: LOSARTAN 50MG TABLET PO SCH (08:18)
[2017-11-04] MEDS: QUETIAPINE 25MG TABLET PO SCH ×2 (08:18→19:47)
[2017-11-04] MEDS: AMLODIPINE 5 MG TABLET PO SCH (08:18)
[2017-11-04] MEDS: metFORMIN 500 MG TABLET PO SCH ×2 (08:19→16:49)
[2017-11-04] MEDS: DIVALPROEX 125 MG CAP.SPRINK PO SCH (11:15)
[2017-11-04 13:49] VITALS: BP 100/54
[2017-11-04] MEDS ORDERED: QUETIAPINE 25MG TABLET PO PRN (18:00)
[2017-11-04 19:16] VITALS: BP 108/57
[2017-11-04] MEDS: CEFTRIAXONE PMX 2GM/50ML 50 ML IV SCH (19:20)
[2017-11-04] MEDS: ATORVASTATIN 40 MG TABLET PO SCH (19:46)
[2017-11-04] MEDS: DONEPEZIL 5 MG TABLET PO SCH (19:47)
[2017-11-04] MEDS: MELATONIN 3 MG TABLET PO SCH (19:47)
[2017-11-05 01:18] VITALS: BP 108/68
[2017-11-05] MEDS: INSULIN LISPRO 100 UNITS/ML, PEN SQ-INSULIN SCH ×4 (07:00→19:46)
[2017-11-05 08:59] VITALS: BP 99/63
[2017-11-05] MEDS: METOPROLOL SUCCINATE 50 MG TAB.ER.24H PO SCH (09:00)
[2017-11-05 09:15] VITALS: BP 124/70
[2017-11-05] MEDS: AMLODIPINE 5 MG TABLET PO SCH (09:22)
[2017-11-05] MEDS: metFORMIN 500 MG TABLET PO SCH ×2 (09:22→18:42)
[2017-11-05] MEDS: ASPIRIN 81 MG TABLET EC PO SCH (09:23)
[2017-11-05] MEDS: QUETIAPINE 25MG TABLET PO SCH ×4 (09:23→21:00)
[2017-11-05] MEDS: POTASSIUM CHLORIDE 10 MEQ TABLET.ER PO SCH (09:23)
[2017-11-05] MEDS: FAMOTIDINE 20 MG TABLET PO SCH ×3 (09:24→19:50)
[2017-11-05] MEDS: DULOXETINE 30 MG CAPSULE.DR PO SCH (09:24)
[2017-11-05] MEDS: ENOXAPARIN 40 MG/0.4 ML SQ SCH (09:24)
[2017-11-05] MEDS: LOSARTAN 50MG TABLET PO SCH (09:24)
[2017-11-05] MEDS: DIVALPROEX 125 MG CAP.SPRINK PO SCH (12:15)
[2017-11-05 14:39] VITALS: BP 103/55
[2017-11-05 16:32] VITALS: BP 108/69
[2017-11-05] MEDS: CARVEDILOL 6.25 MG TABLET PO SCH (18:48)
[2017-11-05 19:12] VITALS: BP 101/72
[2017-11-05] MEDS: ATORVASTATIN 40 MG TABLET PO SCH ×2 (19:44→19:50)
[2017-11-05] MEDS: DONEPEZIL 5 MG TABLET PO SCH ×2 (19:44→19:50)
[2017-11-05] MEDS: MELATONIN 3 MG TABLET PO SCH ×2 (19:45→19:51)
[2017-11-06] MEDS: QUETIAPINE 25MG TABLET PO SCH ×5 (00:57→21:00)
[2017-11-06 01:15] VITALS: BP 118/79
[2017-11-06] MEDS: CARVEDILOL 6.25 MG TABLET PO SCH ×2 (04:27→18:00)
[2017-11-06] MEDS: metFORMIN 500 MG TABLET PO SCH ×2 (08:00→17:00)
[2017-11-06] MEDS ORDERED: BISACODYL 5 MG EC TABLET PO ONE (08:30)
[2017-11-06 08:33] VITALS: BP 106/57
[2017-11-06] MEDS: DULOXETINE 30 MG CAPSULE.DR PO SCH ×2 (09:00→12:36)
[2017-11-06] MEDS: POTASSIUM CHLORIDE 10 MEQ TABLET.ER PO SCH ×2 (09:00→10:13)
[2017-11-06] MEDS: FAMOTIDINE 20 MG TABLET PO SCH ×4 (09:00→21:48)
[2017-11-06] MEDS: LOSARTAN 50MG TABLET PO SCH ×2 (09:00→10:13)
[2017-11-06] MEDS: ASPIRIN 81 MG TABLET EC PO SCH ×2 (09:00→10:14)
[2017-11-06] MEDS: INSULIN LISPRO 100 UNITS/ML, PEN SQ-INSULIN SCH ×4 (10:12→21:00)
[2017-11-06] MEDS: ENOXAPARIN 40 MG/0.4 ML SQ SCH (10:12)
[2017-11-06 10:18] VITALS: BP 116/68
[2017-11-06] MEDS: DIVALPROEX 125 MG CAP.SPRINK PO SCH (12:00)
[2017-11-06 14:00] VITALS: BP 128/63
[2017-11-06 20:24] VITALS: BP 176/69
[2017-11-06] MEDS: ATORVASTATIN 40 MG TABLET PO SCH ×2 (21:00→21:47)
[2017-11-06] MEDS: DONEPEZIL 5 MG TABLET PO SCH ×2 (21:00→21:47)
[2017-11-06] MEDS: MELATONIN 3 MG TABLET PO SCH (21:00)
[2017-11-07 02:43] VITALS: BP 160/79
[2017-11-07] MEDS: CARVEDILOL 6.25 MG TABLET PO SCH ×2 (05:24→18:00)
[2017-11-07] MEDS: INSULIN LISPRO 100 UNITS/ML, PEN SQ-INSULIN SCH ×4 (07:00→21:00)
[2017-11-07] MEDS ORDERED: BISACODYL 10 MG SUPP PR ONE ×2 (07:00→17:16)
[2017-11-07 08:00] VITALS: BP 148/67
[2017-11-07] MEDS: metFORMIN 500 MG TABLET PO SCH ×2 (08:00→18:48)
[2017-11-07] MEDS: QUETIAPINE 25MG TABLET PO SCH ×3 (09:00→21:00)
[2017-11-07] MEDS: FAMOTIDINE 20 MG TABLET PO SCH ×2 (09:00→21:00)
[2017-11-07] MEDS: LOSARTAN 50MG TABLET PO SCH (09:00)
[2017-11-07] MEDS: POTASSIUM CHLORIDE 10 MEQ TABLET.ER PO SCH (09:00)
[2017-11-07] MEDS: ASPIRIN 81 MG TABLET EC PO SCH (09:00)
[2017-11-07 14:23] VITALS: BP 144/77
[2017-11-07 18:14] LABS: MICROSCOPIC NOT IND
[2017-11-07 20:30] VITALS: BP 125/69
[2017-11-07] MEDS: ENOXAPARIN 40 MG/0.4 ML SQ SCH (21:00)
[2017-11-07] MEDS: DONEPEZIL 5 MG TABLET PO SCH (21:00)
[2017-11-07] MEDS: MELATONIN 3 MG TABLET PO SCH (21:00)
[2017-11-07] MEDS: ATORVASTATIN 40 MG TABLET PO SCH (21:00)
[2017-11-08] MEDS: SODIUM CHLORIDE 0.9% 1,000 ML IV SCH ×2 (01:06→21:27)
[2017-11-08 01:28] VITALS: BP 152/82
[2017-11-08 05:43] LABS: ANION GAP 9 mmol/L (5-15); CALCIUM 8.4 mg/dL (8.5-10.1); CHLORIDE 117 mmol/L (98-107)
[2017-11-08 05:44] LABS: BASOPHILS # (AUTO) 0.05 x10^3/uL (0-0.1); BASOPHILS % (AUTO) 0 % (0-1); CREATININE 0.73 mg/dL (0.55-1.02); EOSINOPHILS # (AUTO) 0.37 x10^3/uL (0-0.4); EOSINOPHILS % (AUTO) 3 % (1-7); LYMPHOCYTES # (AUTO) 0.89 x10^3/uL (1-3.4); LYMPHOCYTES % (AUTO) 8 % (22-44); MD NO; MEAN CORPUSCULAR HEMOGLOBIN 29.4 pg (27.0-34.8); MEAN CORPUSCULAR HGB CONC 33.4 g/dL (32.4-35.8); MEAN PLATELET VOLUME 7.9 fL (7.4-10.4); MONOCYTES # (AUTO) 0.64 x10^3/uL (0.2-0.8); MONOCYTES % (AUTO) 6 % (2-9); NEUTROPHILS % (AUTO) 83 % (42-75); PLATELET COUNT 416 x10^3/uL (130-400); RED BLOOD COUNT 4.13 x10^6/uL (3.82-5.3); RED CELL DISTRIBUTION WIDTH 14.9 % (9.6-15.2)
[2017-11-08] MEDS: CARVEDILOL 6.25 MG TABLET PO SCH ×2 (06:00→18:00)
[2017-11-08 07:12] VITALS: BP 175/78
[2017-11-08] MEDS: QUETIAPINE 25MG TABLET PO SCH ×2 (08:50→21:30)
[2017-11-08] MEDS: DULOXETINE 30 MG CAPSULE.DR PO SCH (08:50)
[2017-11-08] MEDS: LOSARTAN 50MG TABLET PO SCH (08:51)
[2017-11-08] MEDS: ASPIRIN 81 MG TABLET EC PO SCH (08:51)
[2017-11-08] MEDS: metFORMIN 500 MG TABLET PO SCH ×2 (08:52→17:00)
[2017-11-08] MEDS: POTASSIUM CHLORIDE 10 MEQ TABLET.ER PO SCH (08:52)
[2017-11-08] MEDS: FAMOTIDINE 20 MG TABLET PO SCH ×2 (08:52→21:28)
[2017-11-08] MEDS: ENOXAPARIN 40 MG/0.4 ML SQ SCH (08:52)
[2017-11-08] MEDS: INSULIN LISPRO 100 UNITS/ML, PEN SQ-INSULIN SCH ×4 (08:53→21:00)
[2017-11-08 12:48] VITALS: BP 139/77
[2017-11-08 19:25] VITALS: BP 100/67
[2017-11-08] MEDS: MELATONIN 3 MG TABLET PO SCH (21:00)
[2017-11-08] MEDS: DONEPEZIL 5 MG TABLET PO SCH (21:28)
[2017-11-08] MEDS: ATORVASTATIN 40 MG TABLET PO SCH (21:29)
[2017-11-09 00:45] VITALS: BP 139/82
[2017-11-09] MEDS: CARVEDILOL 6.25 MG TABLET PO SCH (05:03)
[2017-11-09 06:56] VITALS: BP 121/79
[2017-11-09] MEDS: INSULIN LISPRO 100 UNITS/ML, PEN SQ-INSULIN SCH (07:37)
[2017-11-09] MEDS: FAMOTIDINE 20 MG TABLET PO SCH ×2 (09:00→20:00)
[2017-11-09] MEDS: DULOXETINE 30 MG CAPSULE.DR PO SCH (09:00)
[2017-11-09] MEDS: QUETIAPINE 25MG TABLET PO SCH ×2 (09:00→20:00)
[2017-11-09] MEDS ORDERED: ONDANSETRON 2MG/ML, 2ML IVPush PRN (11:30)
[2017-11-09 12:41] VITALS: BP 101/65
[2017-11-09] MEDS: DONEPEZIL 5 MG TABLET PO SCH (19:59)
[2017-11-09] MEDS: MELATONIN 3 MG TABLET PO SCH (19:59)
[2017-11-09 20:23] VITALS: BP 119/85
[2017-11-10 02:51] VITALS: BP 131/80
[2017-11-10] MEDS: FAMOTIDINE 20 MG TABLET PO SCH ×2 (09:00→19:46)
[2017-11-10] MEDS: DULOXETINE 30 MG CAPSULE.DR PO SCH (09:00)
[2017-11-10] MEDS: QUETIAPINE 25MG TABLET PO SCH ×2 (09:00→19:46)
[2017-11-10] MEDS: MELATONIN 3 MG TABLET PO SCH (19:46)
[2017-11-10] MEDS: DONEPEZIL 5 MG TABLET PO SCH (19:46)
[2017-11-11] MEDS: HALOPERIDOL 5 MG/ML IM PRN (02:03)
[2017-11-11] MEDS: FAMOTIDINE 20 MG TABLET PO SCH ×2 (09:00→21:00)
[2017-11-11] MEDS: DULOXETINE 30 MG CAPSULE.DR PO SCH (09:00)
[2017-11-11] MEDS: QUETIAPINE 25MG TABLET PO SCH ×2 (09:00→21:00)
[2017-11-11] MEDS: DONEPEZIL 5 MG TABLET PO SCH (21:00)
[2017-11-11] MEDS: MELATONIN 3 MG TABLET PO SCH (21:00)
[2017-11-12] MEDS: FAMOTIDINE 20 MG TABLET PO SCH (09:00)
[2017-11-12] MEDS: DULOXETINE 30 MG CAPSULE.DR PO SCH (09:00)
[2017-11-12] MEDS: LACTOBACILLUS CHEW TABLET PO SCH ×2 (09:00→16:00)
[2017-11-12] MEDS: QUETIAPINE 25MG TABLET PO SCH (09:00)
[2017-11-12] MEDS ORDERED: QUET25TA PO ×2 (10:24)
[2017-11-12] MEDS ORDERED: DOCU-131 PO (10:24)
[2017-11-12] MEDS ORDERED: FAMO20TA7 PO (10:24)
[2017-11-12] MEDS ORDERED: HALO5TAB5 PO (10:24)
[2017-11-12] MEDS ORDERED: ONDA4TAB10 PO (10:24)
[2017-11-12] MEDS ORDERED: ACID1TAB7 PO (10:24)
[2017-11-12] MEDS ORDERED: MELA3TAB2 PO (10:24)
[2017-11-12] MEDS ORDERED: ACET325T14 PO (10:24)
== END 2017-11-12 17:36 | disposition home or self-care (01) | DRG 640 ==
LOC: ED 15:38 → EDIP 15:39 → ED 15:55 → CCU 19:48 → 4NOR 10-20 12:30 → 3NE 10-23 16:58 → 3NW 11-10 05:33
PROVIDERS: ADMIT Hospitalist; ATTEND Hospitalist
PROC: 0T9B70Z Drainage of Bladder with Drainage Device, Via Natural or Artificial Opening (ICD-10-PCS; principal; 2017-10-18)
DX: E87.1 Hypo-osmolality and hyponatremia (principal); G93.40 Encephalopathy, unspecified; G93.1 Anoxic brain damage, not elsewhere classified; N39.0 Urinary tract infection, site not specified; I10 Essential (primary) hypertension; E11.65 Type 2 diabetes mellitus with hyperglycemia; E55.9 Vitamin D deficiency, unspecified; E56.0 Deficiency of vitamin E; E78.5 Hyperlipidemia, unspecified; E86.0 Dehydration; E87.6 Hypokalemia; F02.80 Dementia in other diseases classified elsewhere, unspecified severity, without behavioral disturbance, psychotic disturbance, mood disturbance, and anxiety; F09 Unspecified mental disorder due to known physiological condition; F32.9 Major depressive disorder, single episode, unspecified; G47.00 Insomnia, unspecified; I16.0 Hypertensive urgency; I25.10 Atherosclerotic heart disease of native coronary artery without angina pectoris; K59.00 Constipation, unspecified; Z51.5 Encounter for palliative care; Z63.8 Other specified problems related to primary support group; Z66 Do not resuscitate; Z75.1 Person awaiting admission to adequate facility elsewhere; I25.2 Old myocardial infarction; Z77.098 Contact with and (suspected) exposure to other hazardous, chiefly nonmedicinal, chemicals; Z82.49 Family history of ischemic heart disease and other diseases of the circulatory system; Z86.74 Personal history of sudden cardiac arrest; Z95.810 Presence of automatic (implantable) cardiac defibrillator
CPT/HCPCS: 36415; 70450; 71045; 80048; 80053; 81001; 81003; 82040; 82306; 82607; 82962; 83036; 83735; 83930; 83935; 84100; 84300; 84443; 84484; 85025; 86480; 87077; 87081; 87086; 87186; 93005; 96360; 96361; 96372; J0696; J1650; 92523-GN; J0360; J1630; J1815; J2060; J3475; J7030; J7040; S0028